=== PATIENT | female | born 1950 | race Caucasian/White ===

== ENCOUNTER 2018-03-01 22:48 | Inpatient (IN) | payer MEDICARE, MEDICAID ==
[~2018-03-01] VITALS: Ht 154.9 cm; Wt 42.6 kg
[2018-03-01] MEDS ORDERED: ALBUTEROL SULFATE 2.5 MG/3 ML NPPB ONE (23:00)
[2018-03-01] MEDS ORDERED: SODIUM CHLORIDE FLUSH 10ML SYR IVF ONE (23:00)
[2018-03-01] MEDS ORDERED: ALBUTEROL/IPRATROPIUM 2.5MG/0.5MG, 3 ML NPPB ONE (23:00)
[2018-03-01 23:12] LABS: BASOPHILS # (AUTO) 0.04 x10^3/uL (0-0.1); BASOPHILS % (AUTO) 1 % (0-1); EOSINOPHILS # (AUTO) 0.12 x10^3/uL (0-0.4); EOSINOPHILS % (AUTO) 2 % (1-7); LYMPHOCYTES # (AUTO) 2.15 x10^3/uL (1-3.4); LYMPHOCYTES % (AUTO) 32 % (22-44); MD NO; MEAN CORPUSCULAR HEMOGLOBIN 28.1 pg (27.0-34.8); MEAN CORPUSCULAR HGB CONC 33.1 g/dL (32.4-35.8); MEAN CORPUSCULAR VOLUME 84.9 fL (80-100); MEAN PLATELET VOLUME 8.2 fL (7.4-10.4); MONOCYTES # (AUTO) 0.62 x10^3/uL (0.2-0.8); MONOCYTES % (AUTO) 9 % (2-9); NEUTROPHILS # (AUTO) 3.88 x10^3/uL (1.8-6.8); NEUTROPHILS % (AUTO) 57 % (42-75); PLATELET COUNT 292 x10^3/uL (130-400); RED CELL DISTRIBUTION WIDTH 14.4 % (9.6-15.2)
[2018-03-01 23:24] LABS: ALANINE AMINOTRANSFERASE 23 U/L (12-78); ALBUMIN 3.7 g/dL (3.4-5.0); ANION GAP 5 mmol/L (5-15); CALCIUM 9.6 mg/dL (8.5-10.1); CHLORIDE 106 mmol/L (98-107); CREATININE 0.59 mg/dL (0.55-1.02)
[2018-03-01 23:29] LABS: ALKALINE PHOSPHATASE 98 U/L (45-117); BILIRUBIN,TOTAL 0.2 mg/dL (0.2-1.0); TOTAL PROTEIN 7.8 g/dL (6.4-8.2); TROPONIN I < 0.015 ng/mL (0.000-0.045)
[2018-03-01] MEDS ORDERED: methylPREDNISolone SOD SUCC 125 MG/2 ML ONE (23:29)
[2018-03-01] MEDS ORDERED: methylPREDNISolone SOD SUCC 125 MG/2 ML IVPush ONE (23:30)
[2018-03-01 23:39] LABS: INTERNATIONAL NORMALIZED RATIO 0.93 (0.93-1.1); PROTHROMBIN TIME 9.6 Seconds (9.6-11.5)
[2018-03-02] MEDS ORDERED: DOCUSATE 100 MG CAPSULE PO PRN (01:00)
[2018-03-02] MEDS ORDERED: hydrALAzine 20 MG/ML, 1ML IVPush PRN (01:00)
[2018-03-02] MEDS ORDERED: ALBUTEROL/IPRATROPIUM 2.5MG/0.5MG, 3 ML IPPB PRN (01:00)
[2018-03-02 01:11] VITALS: BP 122/49
[2018-03-02 01:27] VITALS: BP 122/69
[2018-03-02] MEDS ORDERED: LEVA1.2524 INH (01:34)
[2018-03-02] MEDS ORDERED: BUDE10.2 INH (01:34)
[2018-03-02] MEDS ORDERED: ALBU0.63 NEB (01:34)
[2018-03-02] MEDS ORDERED: TIOT18CA INH (01:34)
[2018-03-02] MEDS ORDERED: DIPH25CA61 PO (01:34)
[2018-03-02] MEDS ORDERED: LEVALBUTEROL HCL 1.25 MG INH PRN (02:00)
[2018-03-02] MEDS ORDERED: DIPHENHYDRAMINE 25 MG CAPSULE PO PRN (02:00)
[2018-03-02] MEDS ORDERED: ALBUTEROL/IPRATROPIUM 2.5MG/0.5MG, 3 ML NPPB PRN ×2 (03:30)
[2018-03-02] MEDS ORDERED: methylPREDNISolone SOD SUCC 40 MG/ML IVPush SCH (05:00)
[2018-03-02 06:44] VITALS: BP 124/67
[2018-03-02] MEDS: ALBUTEROL/IPRATROPIUM 2.5MG/0.5MG, 3 ML NPPB SCH ×4 (07:00→19:23)
[2018-03-02] MEDS: FLUTICASONE/VILANTEROL 200-25MCG/INH INH SCH (08:45)
[2018-03-02] MEDS ORDERED: TEMPLATE NON-FORMULARY MED. (Tiotropium Bromide** (Spiriva**) 18 MCG) INH SCH (09:00)
[2018-03-02 12:57] VITALS: BP 125/71
[2018-03-02 20:49] VITALS: BP 149/87
[2018-03-02] MEDS: LEVALBUTEROL 1.25 MG/3 ML NPPB SCH ×2 (21:09→21:30)
[2018-03-03 03:25] VITALS: BP 118/65
[2018-03-03] MEDS: LEVALBUTEROL 1.25 MG/3 ML NPPB SCH ×3 (05:27→16:00)
[2018-03-03] MEDS ORDERED: PRED20TA PO (07:57)
[2018-03-03 08:27] VITALS: BP 104/65
[2018-03-03] MEDS: FLUTICASONE/VILANTEROL 200-25MCG/INH INH SCH (09:00)
[2018-03-03 14:19] VITALS: BP 117/71
[2018-03-03 21:14] VITALS: BP 146/83
== END 2018-03-03 21:35 | disposition home or self-care (01) | DRG 191 ==
LOC: ED 23:59 → EDIP 03-02 00:16 → 4NOR 03-02 01:00
PROVIDERS: ADMIT Internal Medicine; ATTEND Internal Medicine
DX: J44.1 Chronic obstructive pulmonary disease with (acute) exacerbation (principal); J96.10 Chronic respiratory failure, unspecified whether with hypoxia or hypercapnia; R65.10 Systemic inflammatory response syndrome (SIRS) of non-infectious origin without acute organ dysfunction; F17.210 Nicotine dependence, cigarettes, uncomplicated; Z82.49 Family history of ischemic heart disease and other diseases of the circulatory system; Z99.81 Dependence on supplemental oxygen
CPT/HCPCS: 36415; 71045; 80053; 83880; 84484; 85025; 85610; 85730; 93005; 94640; 96374; G0378; J7613; J7620; J2930; J7512; Q0163

== ENCOUNTER 2018-08-30 18:42 | Inpatient (IN) | payer MEDICARE, MEDICAID ==
[~2018-08-30] VITALS: Ht 154.9 cm; Wt 44.6 kg
[~2018-08-30 18:42] MED LIST: ALBU0.63 NEB; BUDE10.2 INH; DIPH25CA61 PO; LEVA1.2524 INH; PRED20TA PO; TIOT18CA INH
[2018-08-30] MEDS ORDERED: methylPREDNISolone SOD SUCC 125 MG/2 ML ONE ×2 (18:44→19:22)
[2018-08-30] MEDS ORDERED: AZITHROMYCIN 500 MG in SODIUM CHLORIDE 0.9% 250 ML IV ONE (19:00)
[2018-08-30] MEDS ORDERED: SODIUM CHLORIDE 0.9% 1,000ML IVBOLUS ONE (19:00)
[2018-08-30] MEDS ORDERED: methylPREDNISolone SOD SUCC 125 MG/2 ML IVP ONE (19:00)
[2018-08-30] MEDS ORDERED: MAGNESIUM SULFATE PMX 2GM/50ML 50 ML IVPB ONE (19:00)
[2018-08-30] MEDS ORDERED: IPRATROPIUM 0.5 MG/2.5 ML INHA ONE (19:12)
[2018-08-30 19:15] LABS: MEAN CORPUSCULAR HEMOGLOBIN 27.1 pg (27.0-34.8); MEAN CORPUSCULAR HGB CONC 32.8 g/dL (32.4-35.8); MEAN CORPUSCULAR VOLUME 82.6 fL (80-100); MEAN PLATELET VOLUME 8.3 fL (7.4-10.4); PLATELET COUNT 354 x10^3/uL (130-400); RED CELL DISTRIBUTION WIDTH 14.1 % (9.6-15.2)
--- NOTE | 2018-08-30 19:17 | NUR ---
BEDSIDE REPORT TO CAMERON SAHNI, PT CARE TRANSFERRED AT THIS TIME
[2018-08-30 19:18] LABS: MD YES
[2018-08-30 19:24] LABS: ALBUMIN 3.8 g/dL (3.4-5.0); ANION GAP 2 mmol/L (5-15); CALCIUM 9.2 mg/dL (8.5-10.1); CHLORIDE 103 mmol/L (98-107); CREATININE 0.62 mg/dL (0.55-1.02)
--- NOTE | 2018-08-30 19:26 | NUR ---
ASSUMED CARE FOR THIS PT AND IV MEDS AND FLUIDS STARTED ORDERED. PT IN NO DISTRESS AT THIS TIME WITH HR DOWN FROM 150 TO 130 AND REMAINS ON BIPAP
[2018-08-30 19:29] LABS: TROPONIN I < 0.015 ng/mL (0.000-0.045)
--- NOTE | 2018-08-30 20:01 | NUR ---
FAMILY AT BEDSIDE. PT IN NO DISTRESS AT THIS TIME AND TRIAL RUN ON SIMPLE MASK IS PENDING.
[2018-08-30 20:07] LABS: <PLATELET ESTIMATE> ADEQUATE; <PLT MORPHOLOGY> NORMAL PLT MORPH; <RBC MORPHOLOGY> NORMAL; EOS#(MANUAL) 0.18 x10^3/uL (0.0-0.4); EOS% (MANUAL) 1 % (1-7); LYMPH#(MANUAL) 2.18 x10^3/uL (1-3.4); LYMPHS% (MANUAL) 12 % (22-44); MONOS#(MANUAL) 1.27 x10^3/uL (0.3-2.7); MONOS% (MANUAL) 7 % (2-9); SEG#(MANUAL) 14.56 x10^3/uL (1.8-6.8); SEGS% (MANUAL) 80 % (42-75)
--- NOTE | 2018-08-30 20:28 | NUR ---
PT REMOVED FROM BIPAP AND PLACED IN A SIMPLE MASK AT 6 L PT WILL BE TRIALED ON THIS FOR 30 MIN.
--- NOTE | 2018-08-30 20:55 | NUR ---
PT UP TO BEDSIDE COMODE AND NOW WITH RESP AT 30 AND HR AT 125. PT WILL BE WATCHED AND IF NOT ABLE TO RECOVER WILL BE PLACED BACK ON BIPAP.
--- NOTE | 2018-08-30 21:00 | NUR ---
PT BACK TO BIPAP AFTER GETTING UP TO BSC PT REPORTED NOT BEING ABLE TO CATCH HER BREATH.
[2018-08-30 21:30] VITALS: BP 131/60
[2018-08-30] MEDS ORDERED: ACETAMINOPHEN 325 MG TABLET PO PRN (21:30)
[2018-08-30] MEDS ORDERED: morphine SULFATE 10 MG/ML, 1ML IVPush PRN (21:30)
[2018-08-30] MEDS ORDERED: ONDANSETRON 2MG/ML, 2ML IVPush PRN (21:30)
[2018-08-30] MEDS ORDERED: ENALAPRILAT 1.25 MG/ML, 2ML IVPush PRN (21:30)
[2018-08-30] MEDS ORDERED: ONDANSETRON 2MG/ML, 2ML ONE (21:34)
--- NOTE | 2018-08-30 21:49 | NUR ---
PT TRANSFERED TO CCU
[2018-08-30] MEDS: IPRATROPIUM 0.5 MG/2.5 ML INHA NPPB SCH (22:05)
[2018-08-30] MEDS: DIPHENHYDRAMINE 25 MG CAPSULE PO PRN (22:27)
[2018-08-30] MEDS: ENOXAPARIN 40 MG/0.4 ML SQ SCH (22:27)
[2018-08-31] MEDS: IPRATROPIUM 0.5 MG/2.5 ML INHA NPPB SCH ×6 (02:29→23:00)
[2018-08-31] MEDS: methylPREDNISolone SOD SUCC 125 MG/2 ML IVPush SCH ×4 (04:10→21:20)
[2018-08-31 05:00] VITALS: BP 109/55
[2018-08-31 05:15] LABS: BASOPHILS % (AUTO) 0 % (0-1); EOSINOPHILS % (AUTO) 0 % (1-7); LYMPHOCYTES # (AUTO) 0.75 x10^3/uL (1-3.4); LYMPHOCYTES % (AUTO) 17 % (22-44); MD NO; MEAN CORPUSCULAR HEMOGLOBIN 26.9 pg (27.0-34.8); MEAN CORPUSCULAR HGB CONC 33.1 g/dL (32.4-35.8); MEAN CORPUSCULAR VOLUME 81.1 fL (80-100); MEAN PLATELET VOLUME 8.9 fL (7.4-10.4); MONOCYTES # (AUTO) 0.05 x10^3/uL (0.2-0.8); MONOCYTES % (AUTO) 1 % (2-9); NEUTROPHILS # (AUTO) 3.74 x10^3/uL (1.8-6.8); NEUTROPHILS % (AUTO) 82 % (42-75); PLATELET COUNT 237 x10^3/uL (130-400); RED BLOOD COUNT 4.16 x10^6/uL (3.82-5.3); RED CELL DISTRIBUTION WIDTH 13.6 % (9.6-15.2)
[2018-08-31 05:23] LABS: ANION GAP 7 mmol/L (5-15); CALCIUM 8.6 mg/dL (8.5-10.1); CHLORIDE 108 mmol/L (98-107)
[2018-08-31 07:29] LABS: RAPID INFLUENZA A Negative (Negative); RAPID INFLUENZA B Negative (Negative)
[2018-08-31] MEDS ORDERED: AZITHROMYCIN 250 MG TABLET PO SCH (09:00)
[2018-08-31] MEDS ORDERED: DOXYCYCLINE 50 MG/5 ML ORAL SUSP PO SCH (10:00)
[2018-08-31] MEDS: DIPHENHYDRAMINE 25 MG CAPSULE PO PRN ×3 (11:46→22:50)
[2018-08-31 12:45] VITALS: BP 127/78
[2018-08-31] MEDS ORDERED: DOCUSATE 100 MG CAPSULE PO PRN (21:00)
[2018-08-31] MEDS: SYMBICORT HOMEINH SCH (21:00)
[2018-08-31 21:12] VITALS: BP 129/73
[2018-08-31] MEDS: DOXYCYCLINE 100MG TABLET PO SCH (21:18)
[2018-08-31] MEDS: DOCUSATE 100 MG CAPSULE PO SCH (21:18)
[2018-08-31] MEDS: ENOXAPARIN 40 MG/0.4 ML SQ SCH (21:18)
[2018-09-01 00:19] VITALS: BP 148/71
[2018-09-01] MEDS: methylPREDNISolone SOD SUCC 125 MG/2 ML IVPush SCH ×2 (02:24→08:14)
[2018-09-01] MEDS: IPRATROPIUM 0.5 MG/2.5 ML INHA NPPB SCH ×6 (03:00→22:43)
[2018-09-01 05:36] LABS: BASOPHILS # (AUTO) 0.08 x10^3/uL (0-0.1); BASOPHILS % (AUTO) 1 % (0-1); EOSINOPHILS % (AUTO) 0 % (1-7); LYMPHOCYTES # (AUTO) 0.83 x10^3/uL (1-3.4); LYMPHOCYTES % (AUTO) 8 % (22-44); MD NO; MEAN CORPUSCULAR HEMOGLOBIN 27.3 pg (27.0-34.8); MEAN CORPUSCULAR HGB CONC 33.1 g/dL (32.4-35.8); MEAN CORPUSCULAR VOLUME 82.2 fL (80-100); MEAN PLATELET VOLUME 9.1 fL (7.4-10.4); MONOCYTES # (AUTO) 0.29 x10^3/uL (0.2-0.8); MONOCYTES % (AUTO) 3 % (2-9); NEUTROPHILS # (AUTO) 9.88 x10^3/uL (1.8-6.8); NEUTROPHILS % (AUTO) 89 % (42-75); PLATELET COUNT 279 x10^3/uL (130-400); RED CELL DISTRIBUTION WIDTH 13.5 % (9.6-15.2)
[2018-09-01 05:50] LABS: CHLORIDE 107 mmol/L (98-107)
[2018-09-01 06:02] LABS: ALANINE AMINOTRANSFERASE 17 U/L (12-78); ALBUMIN 3.2 g/dL (3.4-5.0); ALKALINE PHOSPHATASE 77 U/L (45-117); ANION GAP 5 mmol/L (5-15); BILIRUBIN,TOTAL 0.2 mg/dL (0.2-1.0); CALCIUM 9.2 mg/dL (8.5-10.1); CREATININE 0.45 mg/dL (0.55-1.02); TOTAL PROTEIN 6.6 g/dL (6.4-8.2)
[2018-09-01 07:46] VITALS: BP 115/68
[2018-09-01] MEDS: DOXYCYCLINE 100MG TABLET PO SCH ×2 (08:13→20:14)
[2018-09-01] MEDS: DOCUSATE 100 MG CAPSULE PO SCH (08:13)
[2018-09-01] MEDS: SYMBICORT HOMEINH SCH ×2 (08:13→17:32)
[2018-09-01] MEDS: DIPHENHYDRAMINE 25 MG CAPSULE PO PRN ×3 (08:14→20:14)
[2018-09-01] MEDS ORDERED: SPIRIVA HOMEINH SCH (09:00)
[2018-09-01] MEDS: methylPREDNISolone SOD SUCC 40 MG/ML IVPush SCH ×2 (14:33→20:15)
[2018-09-01 14:40] VITALS: BP 123/75
[2018-09-01 20:02] VITALS: BP 151/73
[2018-09-01] MEDS: ENOXAPARIN 40 MG/0.4 ML SQ SCH (20:15)
[2018-09-02 01:41] VITALS: BP 130/78
[2018-09-02] MEDS: IPRATROPIUM 0.5 MG/2.5 ML INHA NPPB SCH ×2 (03:00→07:15)
[2018-09-02] MEDS: methylPREDNISolone SOD SUCC 40 MG/ML IVPush SCH ×2 (04:10→09:45)
[2018-09-02 05:48] LABS: BASOPHILS # (AUTO) 0.05 x10^3/uL (0-0.1); BASOPHILS % (AUTO) 1 % (0-1); EOSINOPHILS % (AUTO) 0 % (1-7); LYMPHOCYTES # (AUTO) 1.24 x10^3/uL (1-3.4); LYMPHOCYTES % (AUTO) 13 % (22-44); MD NO; MEAN CORPUSCULAR HEMOGLOBIN 26.6 pg (27.0-34.8); MEAN CORPUSCULAR HGB CONC 32.4 g/dL (32.4-35.8); MEAN PLATELET VOLUME 9.5 fL (7.4-10.4); MONOCYTES # (AUTO) 0.59 x10^3/uL (0.2-0.8); MONOCYTES % (AUTO) 6 % (2-9); NEUTROPHILS # (AUTO) 8.01 x10^3/uL (1.8-6.8); NEUTROPHILS % (AUTO) 81 % (42-75); PLATELET COUNT 257 x10^3/uL (130-400); RED BLOOD COUNT 4.03 x10^6/uL (3.82-5.3); RED CELL DISTRIBUTION WIDTH 13.9 % (9.6-15.2)
[2018-09-02 05:57] LABS: ANION GAP 3 mmol/L (5-15); CALCIUM 9.1 mg/dL (8.5-10.1); CHLORIDE 110 mmol/L (98-107)
[2018-09-02 05:58] LABS: CREATININE 0.47 mg/dL (0.55-1.02)
[2018-09-02 07:58] VITALS: BP 119/69
[2018-09-02] MEDS ORDERED: SPIRIVA HOMEINH SCH (09:00)
[2018-09-02] MEDS: DOXYCYCLINE 100MG TABLET PO SCH (09:42)
[2018-09-02] MEDS: DIPHENHYDRAMINE 25 MG CAPSULE PO PRN ×2 (09:42→17:36)
[2018-09-02] MEDS: DOCUSATE 100 MG CAPSULE PO SCH (09:42)
[2018-09-02] MEDS: SYMBICORT HOMEINH SCH (09:43)
[2018-09-02 13:45] VITALS: BP 124/54
[2018-09-02] MEDS ORDERED: IPRATROPIUM 0.5 MG/2.5 ML INHA NPPB SCH (15:00)
[2018-09-02] MEDS ORDERED: PRED10TA PO (16:03)
[2018-09-02] MEDS ORDERED: DOXY100T PO (16:03)
== END 2018-09-02 17:40 | disposition home or self-care (01) | DRG 189 ==
LOC: ED 20:30 → EDIP 20:35 → CCU 21:41 → 4NOR 08-31 12:00
PROVIDERS: ADMIT Family Medicine; ATTEND Internal Medicine
PROC: 5A09357 Assistance with Respiratory Ventilation, Less than 24 Consecutive Hours, Continuous Positive Airway Pressure (ICD-10-PCS; principal; 2018-08-30)
DX: J96.22 Acute and chronic respiratory failure with hypercapnia (principal); I50.32 Chronic diastolic (congestive) heart failure; E87.2 Acidosis; J44.1 Chronic obstructive pulmonary disease with (acute) exacerbation; D72.829 Elevated white blood cell count, unspecified; F17.200 Nicotine dependence, unspecified, uncomplicated; F41.9 Anxiety disorder, unspecified; R00.0 Tachycardia, unspecified; I11.0 Hypertensive heart disease with heart failure; R91.1 Solitary pulmonary nodule; Z82.49 Family history of ischemic heart disease and other diseases of the circulatory system; Z99.81 Dependence on supplemental oxygen; Z90.49 Acquired absence of other specified parts of digestive tract
CPT/HCPCS: 36415; 36600; 71045; 80048; 80053; 82040; 82803; 83735; 84100; 84484; 85025; 87040; 87081; 87400; 93005; 93306; 94640; 94660; 96374; 96375; 99292; G0378; J0456; J1650; J2405; J7644; J2920; J2930; J3475; J7030; J7050; Q0163

== ENCOUNTER 2019-04-04 12:48 | Emergency (ER) | payer MEDICARE, MEDICAID ==
[~2019-04-04] VITALS: Ht 154.9 cm; Wt 40.0 kg
[~2019-04-04 12:48] MED LIST changes: +DOXY100T PO; +FLUT1BLS3 IH; +FLUT50BL INH; +HYDR50CA PO; +LEVA15HF4 INH; +PRED10TA PO
[2019-04-04] MEDS ORDERED: FLUT100B INH (13:02)
[2019-04-04 13:06] VITALS: BP 104/65
[2019-04-04] MEDS ORDERED: ONDANSETRON ODT 4 MG ONE (13:22)
[2019-04-04 13:26] LABS: BASOPHILS # (AUTO) 0.01 x10^3/uL (0-0.1); BASOPHILS % (AUTO) 0 % (0-1); EOSINOPHILS # (AUTO) 0.01 x10^3/uL (0-0.4); EOSINOPHILS % (AUTO) 0 % (1-7); LYMPHOCYTES # (AUTO) 0.69 x10^3/uL (1-3.4); LYMPHOCYTES % (AUTO) 11 % (22-44); MD NO; MEAN CORPUSCULAR HEMOGLOBIN 25.7 pg (27.0-34.8); MEAN CORPUSCULAR HGB CONC 31.2 g/dL (32.4-35.8); MEAN CORPUSCULAR VOLUME 82.3 fL (80-100); MEAN PLATELET VOLUME 8.3 fL (7.4-10.4); MONOCYTES # (AUTO) 0.22 x10^3/uL (0.2-0.8); MONOCYTES % (AUTO) 4 % (2-9); NEUTROPHILS % (AUTO) 85 % (42-75); PLATELET COUNT 266 x10^3/uL (130-400); RED BLOOD COUNT 4.87 x10^6/uL (3.82-5.3); RED CELL DISTRIBUTION WIDTH 15.6 % (9.6-15.2)
[2019-04-04] MEDS ORDERED: ONDANSETRON ODT 4 MG PO ONE (13:30)
[2019-04-04 13:35] LABS: ALBUMIN 3.7 g/dL (3.4-5.0); ANION GAP 4 mmol/L (5-15); CALCIUM 9.4 mg/dL (8.5-10.1); CHLORIDE 105 mmol/L (98-107)
[2019-04-04 13:39] LABS: RAPID INFLUENZA A Negative (Negative); RAPID INFLUENZA B Negative (Negative)
--- NOTE | 2019-04-04 13:58 | NUR ---
PT OOB AMBULATED TO BATHROOM WITH O2 4L NC PT WITH STEADY UPRIGHT GAIT. PT WITH MARKED DISTRESS ON RTN TO TO ROOM. GASPING BREATHING, SP02 86%, RECOVERED TO 96% UPON SITTING ON GURNEY. PT SITUATED IN BED AND CALL LIGHT W/I REACH. URINE SENT TO LAB
[2019-04-04 14:03] LABS: TROPONIN I < 0.015 ng/mL (0.000-0.045)
[2019-04-04 14:08] LABS: MICROSCOPIC NOT IND
[2019-04-04 14:09] LABS: CULTURE INDICATED? NO
[2019-04-04 14:27] LABS: FREE T4 (FREE THYROXINE) 1.62 ng/dL (0.76-1.46)
--- NOTE | 2019-04-04 15:29 | NUR ---
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 [facility] REP, ARTHUR, TO SEND A INTEGRITY ASSESSOR WITH AN OXYGEN TANK.
--- NOTE | 2019-04-04 15:38 | NUR ---
NOTIFIED PATIENT THAT [facility] IS TO SEND A SEMICONDUCTOR WAFER INSPECTOR WITH OXYGEN IN ABOUT 45 MINS. LUNCH TRAY ORDERED FOR PATIENT. PT RESTING WITH NO COMPLAINTS AND IS IN NO DISTRESS.
--- NOTE | 2019-04-04 16:40 | NUR ---
Patient given discharge instructions and they have confirmed that they understand the instructions. Patient ambulatory with steady gait.
== END 2019-04-04 16:41 | disposition home or self-care (01) ==
LOC: ED 15:28
DX: B34.9 Viral infection, unspecified (principal); J44.1 Chronic obstructive pulmonary disease with (acute) exacerbation; Z87.891 Personal history of nicotine dependence; Z90.89 Acquired absence of other organs
CPT/HCPCS: 36415; 71045; 80048; 81003; 82040; 82375; 84439; 84443; 84481; 84484; 85025; 87400; 93005; 99284; Q0162

== ENCOUNTER 2019-06-09 19:05 | Inpatient (IN) | payer MEDICARE, MEDICAID ==
[~2019-06-09] VITALS: Ht 154.9 cm; Wt 37.1 kg
[~2019-06-09 19:05] MED LIST changes: +ALBU2.5V NPPB; +FLUT100B INH; +METH4TAB2 PO
[2019-06-09] MEDS ORDERED: MAGNESIUM SULFATE PMX 2GM/50ML 50 ML ONE (19:11)
--- NOTE | 2019-06-09 19:16 | NUR ---
UNABLE TO OBTAIN TEMP DUE TO RESP DISTRESS. BEST EKG POSSIBLE OBTAINED HOWEVER UNAVOIDABLE ARTIFACT DUE TO DISTRESS.
[2019-06-09] MEDS ORDERED: ALBUTEROL/IPRATROPIUM 2.5MG/0.5MG, 3 ML ONE (19:18)
--- NOTE | 2019-06-09 19:28 | NUR ---
PER STAT PORTABLE CXR NEEDED. RAD WAS INFORMED OF THIS. LAB AT BEDSIDE. RAD STATES NO CXR UNTIL BLOOD WORK IN DONE. RAD INFORMED PER RAD NEEDS TO BE DONE FIRST. LAB CONTINUES TO DRAW. RAD CONTINUES TO WAIT.
--- NOTE | 2019-06-09 19:29 | NUR ---
PT STATES FEELING BETTER WITH BIPAP. PT HOWEVER STILL REMAINS IN SEVERE RESP DISTRESS.
[2019-06-09] MEDS ORDERED: MAGNESIUM SULFATE PMX 2GM/50ML 50 ML IVPB ONE (19:30)
[2019-06-09 19:43] LABS: BASOPHILS # (AUTO) 0.03 x10^3/uL (0-0.1); BASOPHILS % (AUTO) 0 % (0-1); EOSINOPHILS # (AUTO) 0.04 x10^3/uL (0-0.4); EOSINOPHILS % (AUTO) 1 % (1-7); LYMPHOCYTES # (AUTO) 1.64 x10^3/uL (1-3.4); LYMPHOCYTES % (AUTO) 19 % (22-44); MD NO; MEAN CORPUSCULAR HEMOGLOBIN 25.2 pg (27.0-34.8); MEAN CORPUSCULAR HGB CONC 31.8 g/dL (32.4-35.8); MEAN CORPUSCULAR VOLUME 79.3 fL (80-100); MEAN PLATELET VOLUME 8.5 fL (7.4-10.4); MONOCYTES # (AUTO) 1.12 x10^3/uL (0.2-0.8); MONOCYTES % (AUTO) 13 % (2-9); NEUTROPHILS # (AUTO) 5.83 x10^3/uL (1.8-6.8); NEUTROPHILS % (AUTO) 67 % (42-75); PLATELET COUNT 267 x10^3/uL (130-400); RED BLOOD COUNT 5.25 x10^6/uL (3.82-5.3); RED CELL DISTRIBUTION WIDTH 14.6 % (9.6-15.2)
--- NOTE | 2019-06-09 19:53 | NUR ---
PT REQUESTING BIPAP BE REMOVED. POC DISCUSSED. PT AGREEABLE TO REMAIN ON BIPAP AT THIS TIME. GRANDDAUGHTER STATES SHE LEAVING. PT REQUESTS WE CALL HER GRANDDAUGHTER WITH UPDATES ON HER CARE.
[2019-06-09 19:54] LABS: ALANINE AMINOTRANSFERASE 25 U/L (12-78); ALBUMIN 3.5 g/dL (3.4-5.0); ANION GAP 8 mmol/L (5-15); CALCIUM 9.1 mg/dL (8.5-10.1); CHLORIDE 99 mmol/L (98-107); CREATININE 0.47 mg/dL (0.55-1.02)
[2019-06-09 20:00] LABS: ALKALINE PHOSPHATASE 92 U/L (45-117); BILIRUBIN,TOTAL 0.3 mg/dL (0.2-1.0); TOTAL PROTEIN 7.4 g/dL (6.4-8.2)
--- NOTE | 2019-06-09 20:00 | NUR ---
ON THE PHONE WITH PULMONOLOGY AT THIS TIME
[2019-06-09] MEDS: ALBUTEROL/IPRATROPIUM 2.5MG/0.5MG, 3 ML NPPB PRN (20:10)
[2019-06-09] MEDS ORDERED: LORazepam 2 MG/ML, 1ML ONE (20:14)
--- NOTE | 2019-06-09 20:22 | NUR ---
PT REQUESTING SOMETHING FOR ANXIETY. MD INFORMED. ATIVAN ORDERED. PT THEN DECLINED ATIVAN AND STATES SHE WANTS [facility]. PT WAS INFORMED NPO AT THIS TIME. POC DISCUSSED. PT CONTINUES TO DECLINE ATIVAN. PT DENIES FURTHER NEEDS AT THIS TIME.
[2019-06-09] MEDS ORDERED: LORazepam 2 MG/ML, 1ML IVPush ONE (20:30)
--- NOTE | 2019-06-09 20:36 | NUR ---
PER PTS REQUEST, LIZA,(GRANDDAUGHTER) WAS CALLED ([phone]) AND INFORMED OF PLAN TO ADMIT.
--- NOTE | 2019-06-09 21:04 | NUR ---
PT DENIES CURRENT NEEDS AT THIS TIME. PT MAINTAINING WELL ON THE BIPAP. PT DENIES FURTHER NEEDS AT THIS TIME. AWAITING ADMIT BED.
[2019-06-09] MEDS ORDERED: ONDANSETRON 2MG/ML, 2ML IVPush PRN (22:30)
[2019-06-09] MEDS ORDERED: hydrALAzine 20 MG/ML, 1ML IVPush PRN (22:30)
[2019-06-09] MEDS ORDERED: POTASSIUM CHLORIDE 20 MEQ TAB.ER.PRT PO ONE (22:30)
[2019-06-09] MEDS ORDERED: ACETAMINOPHEN 325 MG TABLET PO PRN (22:30)
[2019-06-09] MEDS ORDERED: AZITHROMYCIN 500 MG in SODIUM CHLORIDE 0.9% 250 ML IV SCH (22:30)
[2019-06-09] MEDS: ENOXAPARIN 40 MG/0.4 ML SQ SCH (22:48)
[2019-06-09] MEDS: CEFTRIAXONE PMX 2GM/50ML 50 ML IV SCH (23:09)
[2019-06-09] MEDS: methylPREDNISolone SOD SUCC 40 MG/ML IVPush SCH (23:11)
[2019-06-10] MEDS ORDERED: ONDANSETRON 2MG/ML, 2ML IVPush ONE (00:30)
[2019-06-10] MEDS: HYDROXYZINE PAMOATE 50MG CAP PO PRN ×3 (00:30→17:49)
[2019-06-10] MEDS ORDERED: ALBUTEROL/IPRATROPIUM 2.5MG/0.5MG, 3 ML ONE (00:44)
[2019-06-10] MEDS: ALBUTEROL/IPRATROPIUM 2.5MG/0.5MG, 3 ML NPPB SCH ×5 (02:28→21:00)
[2019-06-10] MEDS: methylPREDNISolone SOD SUCC 40 MG/ML IVPush SCH ×4 (05:41→23:03)
[2019-06-10 06:01] LABS: ANION GAP 4 mmol/L (5-15); CALCIUM 8.4 mg/dL (8.5-10.1); CHLORIDE 103 mmol/L (98-107)
[2019-06-10 06:03] LABS: BASOPHILS # (AUTO) 0.01 x10^3/uL (0-0.1); BASOPHILS % (AUTO) 0 % (0-1); EOSINOPHILS % (AUTO) 0 % (1-7); LYMPHOCYTES # (AUTO) 0.55 x10^3/uL (1-3.4); LYMPHOCYTES % (AUTO) 13 % (22-44); MD NO; MEAN CORPUSCULAR HEMOGLOBIN 25.2 pg (27.0-34.8); MEAN CORPUSCULAR HGB CONC 31.8 g/dL (32.4-35.8); MEAN CORPUSCULAR VOLUME 79.3 fL (80-100); MEAN PLATELET VOLUME 8.1 fL (7.4-10.4); MONOCYTES # (AUTO) 0.18 x10^3/uL (0.2-0.8); MONOCYTES % (AUTO) 4 % (2-9); NEUTROPHILS # (AUTO) 3.38 x10^3/uL (1.8-6.8); NEUTROPHILS % (AUTO) 82 % (42-75); PLATELET COUNT 250 x10^3/uL (130-400); RED BLOOD COUNT 4.65 x10^6/uL (3.82-5.3); RED CELL DISTRIBUTION WIDTH 14.7 % (9.6-15.2)
[2019-06-10 06:05] LABS: ALANINE AMINOTRANSFERASE 21 U/L (12-78); ALKALINE PHOSPHATASE 80 U/L (45-117); BILIRUBIN,TOTAL 0.2 mg/dL (0.2-1.0); CREATININE 0.54 mg/dL (0.55-1.02); TOTAL PROTEIN 6.6 g/dL (6.4-8.2)
[2019-06-10] MEDS: DOXYCYCLINE 100 MG in DEXTROSE 5% 250 ML IV SCH ×2 (07:50→20:23)
[2019-06-10] MEDS: BUDESONIDE 0.5 MG/2 ML INHA NPPB SCH ×2 (09:25→21:00)
[2019-06-10 10:21] VITALS: BP 95/57
[2019-06-10 13:46] VITALS: BP 112/73
[2019-06-10 18:52] VITALS: BP 130/71
[2019-06-10] MEDS: CEFTRIAXONE PMX 2GM/50ML 50 ML IV SCH (23:03)
[2019-06-10] MEDS: BENZONATATE 100 MG CAPSULE PO PRN (23:03)
[2019-06-10] MEDS: ENOXAPARIN 40 MG/0.4 ML SQ SCH (23:03)
[2019-06-11 00:51] VITALS: BP 108/66
[2019-06-11] MEDS: ALBUTEROL/IPRATROPIUM 2.5MG/0.5MG, 3 ML NPPB SCH ×4 (03:00→21:20)
[2019-06-11] MEDS: methylPREDNISolone SOD SUCC 40 MG/ML IVPush SCH ×4 (04:40→23:04)
[2019-06-11 06:17] LABS: MEAN CORPUSCULAR HEMOGLOBIN 25.1 pg (27.0-34.8); MEAN CORPUSCULAR HGB CONC 31.4 g/dL (32.4-35.8); MEAN PLATELET VOLUME 8.6 fL (7.4-10.4); PLATELET COUNT 252 x10^3/uL (130-400); RED BLOOD COUNT 4.26 x10^6/uL (3.82-5.3); RED CELL DISTRIBUTION WIDTH 14.4 % (9.6-15.2)
[2019-06-11 06:20] LABS: ALBUMIN 2.8 g/dL (3.4-5.0); ANION GAP 3 mmol/L (5-15); CALCIUM 8.5 mg/dL (8.5-10.1); CHLORIDE 104 mmol/L (98-107)
[2019-06-11 06:24] LABS: ALANINE AMINOTRANSFERASE 21 U/L (12-78); ALKALINE PHOSPHATASE 76 U/L (45-117); BILIRUBIN,TOTAL 0.4 mg/dL (0.2-1.0); CREATININE 0.43 mg/dL (0.55-1.02); TOTAL PROTEIN 6.2 g/dL (6.4-8.2)
[2019-06-11 06:47] LABS: BASOPHILS # (AUTO) 0.01 x10^3/uL (0-0.1); BASOPHILS % (AUTO) 0 % (0-1); EOSINOPHILS % (AUTO) 0 % (1-7); LYMPHOCYTES # (AUTO) 0.84 x10^3/uL (1-3.4); LYMPHOCYTES % (AUTO) 9 % (22-44); MD SCAN; MONOCYTES % (AUTO) 4 % (2-9); NEUTROPHILS # (AUTO) 7.71 x10^3/uL (1.8-6.8); NEUTROPHILS % (AUTO) 86 % (42-75)
[2019-06-11 07:25] VITALS: BP 112/72
[2019-06-11] MEDS: DOXYCYCLINE 100 MG in DEXTROSE 5% 250 ML IV SCH ×2 (07:48→19:40)
[2019-06-11] MEDS: BENZONATATE 100 MG CAPSULE PO PRN (07:48)
[2019-06-11] MEDS: BUDESONIDE 0.5 MG/2 ML INHA NPPB SCH ×2 (07:55→21:20)
[2019-06-11] MEDS: HYDROXYZINE PAMOATE 50MG CAP PO PRN (08:18)
[2019-06-11] MEDS ORDERED: BENZONATATE 100 MG CAPSULE PO PRN (11:30)
[2019-06-11] MEDS ORDERED: FUROSEMIDE 20 MG/2 ML IV ONE (11:30)
[2019-06-11 14:45] VITALS: BP 98/64
[2019-06-11] MEDS: HYDROXYZINE PAMOATE 50MG CAP PO SCH ×2 (16:09→21:26)
[2019-06-11 19:51] VITALS: BP 129/72
[2019-06-11] MEDS: CEFTRIAXONE PMX 2GM/50ML 50 ML IV SCH (23:04)
[2019-06-11] MEDS: ENOXAPARIN 40 MG/0.4 ML SQ SCH (23:04)
[2019-06-12 00:21] VITALS: BP 135/91
[2019-06-12] MEDS: ALBUTEROL/IPRATROPIUM 2.5MG/0.5MG, 3 ML NPPB SCH (02:55)
[2019-06-12] MEDS: methylPREDNISolone SOD SUCC 40 MG/ML IVPush SCH ×2 (04:47→10:37)
[2019-06-12] MEDS: HYDROXYZINE PAMOATE 50MG CAP PO SCH ×4 (06:09→20:26)
[2019-06-12 06:24] LABS: BASOPHILS # (AUTO) 0.05 x10^3/uL (0-0.1); BASOPHILS % (AUTO) 1 % (0-1); EOSINOPHILS % (AUTO) 0 % (1-7); LYMPHOCYTES # (AUTO) 0.86 x10^3/uL (1-3.4); LYMPHOCYTES % (AUTO) 8 % (22-44); MD NO; MEAN CORPUSCULAR HEMOGLOBIN 25.1 pg (27.0-34.8); MEAN CORPUSCULAR HGB CONC 31.5 g/dL (32.4-35.8); MEAN CORPUSCULAR VOLUME 79.9 fL (80-100); MEAN PLATELET VOLUME 9.3 fL (7.4-10.4); MONOCYTES # (AUTO) 0.47 x10^3/uL (0.2-0.8); MONOCYTES % (AUTO) 5 % (2-9); NEUTROPHILS # (AUTO) 8.92 x10^3/uL (1.8-6.8); NEUTROPHILS % (AUTO) 87 % (42-75); PLATELET COUNT 306 x10^3/uL (130-400); RED BLOOD COUNT 4.65 x10^6/uL (3.82-5.3); RED CELL DISTRIBUTION WIDTH 14.5 % (9.6-15.2)
[2019-06-12 06:45] LABS: ANION GAP 3 mmol/L (5-15); CALCIUM 9.4 mg/dL (8.5-10.1); CHLORIDE 104 mmol/L (98-107)
[2019-06-12 06:48] LABS: CREATININE 0.39 mg/dL (0.55-1.02)
[2019-06-12] MEDS: DOXYCYCLINE 100 MG in DEXTROSE 5% 250 ML IV SCH (07:17)
[2019-06-12 10:30] VITALS: BP 148/88
[2019-06-12] MEDS ORDERED: BUDESONIDE 0.5 MG/2 ML INHA NPPB SCH (10:30)
[2019-06-12 13:28] VITALS: BP 123/76
[2019-06-12] MEDS ORDERED: BENZ-17 PO (16:35)
[2019-06-12] MEDS ORDERED: CEFD300C37 PO (16:35)
[2019-06-12] MEDS ORDERED: PRED10TA PO (16:35)
[2019-06-12] MEDS ORDERED: DOXY100T PO (16:35)
[2019-06-12 19:19] VITALS: BP 147/70
[2019-06-12] MEDS: CEFDINIR 300 MG CAPSULE PO SCH (20:26)
[2019-06-12] MEDS: DOXYCYCLINE 100MG TABLET PO SCH (20:26)
[2019-06-12] MEDS: ENOXAPARIN 40 MG/0.4 ML SQ SCH (22:07)
[2019-06-13 00:40] VITALS: BP 136/69
[2019-06-13] MEDS: HYDROXYZINE PAMOATE 50MG CAP PO SCH ×2 (05:44→12:28)
[2019-06-13] MEDS: ALBUTEROL/IPRATROPIUM 2.5MG/0.5MG, 3 ML NPPB SCH ×2 (06:56→13:29)
[2019-06-13] MEDS: CEFDINIR 300 MG CAPSULE PO SCH (07:57)
[2019-06-13] MEDS: DOXYCYCLINE 100MG TABLET PO SCH (07:57)
[2019-06-13 08:00] VITALS: BP 128/76
[2019-06-13] MEDS ORDERED: FURO-93 PO (09:58)
[2019-06-13] MEDS ORDERED: FUROSEMIDE 20 MG TABLET PO ONE (10:00)
== END 2019-06-13 15:10 | DRG 291 ==
LOC: ED 19:52 → EDIP 20:01 → ICU 22:28 → 3N 06-10 12:21
PROVIDERS: ADMIT Internal Medicine; ATTEND Internal Medicine
PROC: 5A09357 Assistance with Respiratory Ventilation, Less than 24 Consecutive Hours, Continuous Positive Airway Pressure (ICD-10-PCS; principal; 2019-06-09)
PROC: 5A09357 Assistance with Respiratory Ventilation, Less than 24 Consecutive Hours, Continuous Positive Airway Pressure (ICD-10-PCS; 2019-06-10)
DX: I50.33 Acute on chronic diastolic (congestive) heart failure (principal); J15.9 Unspecified bacterial pneumonia; J96.21 Acute and chronic respiratory failure with hypoxia; J44.0 Chronic obstructive pulmonary disease with (acute) lower respiratory infection; J44.1 Chronic obstructive pulmonary disease with (acute) exacerbation; F41.9 Anxiety disorder, unspecified; E87.6 Hypokalemia; J98.4 Other disorders of lung; N19 Unspecified kidney failure; Z53.20 Procedure and treatment not carried out because of patient's decision for unspecified reasons; Z80.51 Family history of malignant neoplasm of kidney; Z87.891 Personal history of nicotine dependence; Z90.49 Acquired absence of other specified parts of digestive tract; Z99.81 Dependence on supplemental oxygen; Z79.51 Long term (current) use of inhaled steroids
CPT/HCPCS: 36415; 36600; 71045; 80048; 80053; 82803; 83605; 83735; 83880; 84100; 84145; 85025; 87040; 87081; 93005; 94640; G0378; J0456; J0696; J2405; J7060; J7620; J7626; J1940; J2920; J3475; J7050; J7512